=== PATIENT | female | born 1980 | race Asian ===

== ENCOUNTER 2016-03-22 10:07 | Outpatient (CLI) | payer SELFPAY | END 2016-03-22 10:08 | disposition home or self-care (01) | DX: Z36 Encounter for antenatal screening of mother (principal) ==

== ENCOUNTER 2016-04-03 09:43 | Outpatient (CLI) | payer MEDICAID | END 2016-04-03 09:44 | disposition home or self-care (01) | DX: Z36 Encounter for antenatal screening of mother (principal) ==

== ENCOUNTER 2016-04-12 07:31 | Outpatient (CLI) | payer MEDICAID | END 2016-04-12 07:32 | disposition home or self-care (01) | DX: Z34.82 Encounter for supervision of other normal pregnancy, second trimester (principal); O36.8930 Maternal care for other specified fetal problems, third trimester, not applicable or unspecified ==

== ENCOUNTER 2016-05-09 21:24 | Outpatient (CLI) | payer MEDICAID | END 2016-05-09 21:25 | disposition home or self-care (01) | DX: Z36 Encounter for antenatal screening of mother (principal) ==